=== PATIENT | female | born 1965 | race Hispanic/Latino ===

== ENCOUNTER 2023-07-12 08:57 | Emergency (ER) | payer OTHER ==
[~2023-07-12] VITALS: Ht 165.1 cm; Wt 77.1 kg
[2023-07-12 09:22] LABS: HEMATOCRIT 45.2 % (36-48); MEAN CORPUSCULAR HEMOGLOBIN 29.3 pg (27.0-33.0); MEAN CORPUSCULAR HGB CONC 33.6 g/dL (32.0-36.0); MEAN CORPUSCULAR VOLUME 87.3 fL (79-99); PLATELET COUNT (AUTO) 324 K/uL (130-400); RED BLOOD CELL COUNT(AUTO) 5.18 MIL/uL (4.00-5.50); RED CELL DISTRIBUTION WIDTH 13.5 % (11.0-15.5); WHITE BLOOD COUNT (AUTO) 10.6 K/uL (4.8-10.8)
[2023-07-12] MEDS: MAG/ALUM/SIMETH 30 ML UDCUP PO ONE (09:35)
[2023-07-12] MEDS: ONDANSETRON ODT 4MG TAB SL SCH (09:35)
[2023-07-12] MEDS: PANTOPRAZOLE 40 MG TAB DR PO ONE (09:35)
[2023-07-12 09:36] LABS: CREATININE 0.8 mg/dL (0.5-1.5); POTASSIUM 3.7 mmol/L (3.5-5.1)
[2023-07-12 10:18] LABS: LYMPHOCYTES % (MANUAL) 16 % (22-44); MAN.DIFF COMMENT-IMPRESSION MANUAL DIFFERENTIAL; MONOCYTES % (MANUAL) 1 % (2-9); PLATELET MORPHOLOGY COMMENT ADEQUATE; SEGMENTED NEUTROPHILS % 83 % (40-70); TOTAL CELLS COUNTED 100
[2023-07-12] MEDS: MORPHINE 2 MG SYG IVP ONE ×2 (10:49→13:43)
[2023-07-12] MEDS: METOCLOPRAMIDE 10 MG/2 ML VIAL IVP ONE (10:49)
[2023-07-12] MEDS: 0.9%NACL 1000ML 1,000 ML IV ONE (12:04)
[2023-07-12] MEDS: LACTATED RINGERS 1000ML 1,000 ML IV ONE (13:44)
[2023-07-12] MEDS: LACTULOSE 20 GM/30 ML UDCUP PO ONE (15:14)
[2023-07-12 15:48] VITALS: BP 141/88; PULSE 85; RESP 18; O2SAT 95
[2023-07-12] MEDS ORDERED: DOCU-116 PO (17:09)
[2023-07-12 17:48] LABS: APPEARANCE,URINE CLEAR (CLEAR); BILIRUBIN,URINE NEGATIVE (NEGATIVE); COLOR,URINE LIGHT-YELLOW (YELLOW); GLUCOSE, URINE (UA) NEGATIVE (NEGATIVE); KETONES,URINE 5 mg/dL (NEGATIVE); LEUKOCYTE ESTERASE ,URINE NEGATIVE Leu/uL (NEGATIVE); NITRATE,URINE NEGATIVE (NEGATIVE); OCCULT BLOOD,URINE NEGATIVE (NEGATIVE); PROTEIN,URINE NEGATIVE (NEGATIVE); UROBILINOGEN,URINE 0.2 mg/dL (0.2-1.0)
[2023-07-12 17:49] LABS: ADD UA MICROSCOPIC NO
== END 2023-07-12 17:24 | disposition home or self-care (01) ==
LOC: EDH 08:57
DX: T81.89XA Other complications of procedures, not elsewhere classified, initial encounter (principal); K59.00 Constipation, unspecified; E86.0 Dehydration; R14.0 Abdominal distension (gaseous); Z90.49 Acquired absence of other specified parts of digestive tract
CPT/HCPCS: 99284; 96374; 96361; 76705; 96375; 80048; 85025; 87040 ×2; 83605; 81003; 36415; 74018; 96376; J7120; J2270 ×2; J7030; J2765